=== PATIENT | female | born 1950 | race Caucasian/White ===

== ENCOUNTER 2016-12-09 10:41 | Outpatient (CLI) | payer OTHER, MEDICARE ==
--- NOTE | 2016-12-09 12:09 | DIAGNOSTIC IMAGING REPORT ---
PROCEDURE: CT THORAX ABDOMEN WITH CONT INDICATION: History of lung cancer, initial encounter. TECHNIQUE: 125 ml of Isovue 300 administered IV and axial scans were obtained of the chest and abdomen. Coronal and sagittal re-formations were obtained. COMPARISON: None. FINDINGS: Chest: Medial left upper lobe triangular soft tissue density with stranding medially and volume loss consistent with scarring and post radiation changes although residual tumor is not excluded. There is a 2.2 x 1.8 cm right apical spiculated opacity which may represent neoplastic changes versus scarring. There are small right apical blebs. There is no mediastinal or hilar adenopathy. No effusion. Mild atherosclerosis of the aorta. Dense coronary atherosclerosis. Heart size is normal. Left subclavian Port-A-Cath in place. Mild degenerative changes of the spine. Abdomen: Cholecystectomy. Liver, pancreas, spleen and right kidney are normal. 1.5 cm left renal lower pole cyst. Bilateral 2.5 cm adrenal masses. Severe atherosclerosis of the aorta. Mild diverticulosis of the ascending and transverse and descending colon. No suspicious osseous lesions. IMPRESSION: 1. Medial left upper lobe soft tissue density with volume loss and post radiation changes consistent with scarring. Residual tumor is not excluded. 2. Right apical spiculated density which may represent neoplastic changes or scarring. Recommend comparison with prior outside studies. Also consider PET scan. 3. Bilateral adrenal masses 4. Cholecystectomy 5. Diverticulosis
== END 2016-12-09 23:00 ==
LOC: CT SRH 10:41
DX: C34.90 Malignant neoplasm of unspecified part of unspecified bronchus or lung (principal); E27.9 Disorder of adrenal gland, unspecified; Z90.49 Acquired absence of other specified parts of digestive tract; K57.90 Diverticulosis of intestine, part unspecified, without perforation or abscess without bleeding

== ENCOUNTER 2016-12-18 10:33 | Outpatient (CLI) | payer OTHER, MEDICARE ==
--- NOTE | 2016-12-18 11:44 | DIAGNOSTIC IMAGING REPORT ---
PROCEDURE: US VENOUS - LEFT EXT INDICATION: LLL EDEMA TECHNIQUE: Duplex sonography of the deep venous system in the left lower extremity was performed. Compression and augmentation techniques were used. COMPARISON: None. FINDINGS: Normal compression of the greater saphenous, common femoral, superficial femoral, popliteal, peroneal, and posterior tibial veins. Normal augmentation. There is no evidence of superficial or deep venous thrombosis. IMPRESSION: 1. Negative venous ultrasound of the left lower extremity.
== END 2016-12-18 23:00 | disposition home or self-care (01) ==
LOC: US SRH 10:33
DX: C34.90 Malignant neoplasm of unspecified part of unspecified bronchus or lung (principal); C91.10 Chronic lymphocytic leukemia of B-cell type not having achieved remission; R60.9 Edema, unspecified

== ENCOUNTER → 2017-02-26 | Outpatient (CLI) | payer OTHER, MEDICARE ==
--- NOTE | 2017-02-26 12:50 | DIAGNOSTIC IMAGING REPORT ---
PROCEDURE: CT THORAX ABD PELVIS W/CONT INDICATION: LUNG CA, follow-up TECHNIQUE: of Isovue 300 injected intravenously and axial images were obtained of the entire thorax, abdomen, and pelvis with sagittal and coronal reformations. COMPARISON: CT chest/abdomen 12/09/[address] chest/abdomen/pelvis 08/11/[address] [facility] [place], [place] [address]. FINDINGS: THORAX: There has been further contraction of the medial left upper lobe mass which now measures 4.0 x 2.1 cm, previously 4.3 x 2.4 cm. Stable right apical spiculated nodule. There are no additional pulmonary nodules. Minor biapical blebs. No adenopathy or effusion. Right subclavian Port-A-Cath in place. Mild atherosclerosis of the aorta. Atherosclerosis of the coronary arteries. Normal heart size. There is no pericardial effusion. Chronic mild T10 compression fracture ABDOMEN: Cholecystectomy. Liver, pancreas and right kidney are normal. Small left renal cyst. Stable bilateral 2.5 cm adrenal masses. Severe atherosclerosis of the aorta. Mild colonic diverticulosis. Severe L5-S1 disc space narrowing. PELVIS: Normal appendix. Moderate sigmoid diverticulosis. Stable 4 cm exophytic right fundal fibroid bladder and adnexa are unremarkable. No free fluid or free air. Bones are unremarkable. IMPRESSION: 1. Interval contraction of the medial left upper lobe mass consistent with scarring although residual tumor is not entirely excluded 2. Stable right apical spiculated nodule 3. Stable bilateral adrenal masses 4. Cholecystectomy 5. Diverticulosis All CT scans at this facility use dose modulation, iterative reconstruction, and/or weight-based dosing when appropriate to reduce radiation dose to as low as reasonably achievable.
== END ==
LOC: CT SRH 10:09
DX: C34.90 Malignant neoplasm of unspecified part of unspecified bronchus or lung (principal); K57.30 Diverticulosis of large intestine without perforation or abscess without bleeding; Z90.49 Acquired absence of other specified parts of digestive tract